=== PATIENT | female | born 1995 ===

== ENCOUNTER → 2020-05-02 | Outpatient (CLI) | payer OTHER | END | disposition home or self-care (01) | LOC: PRENATAL 10:30 | PROVIDERS: ATTEND Obstetrics & Gynecology Maternal & Fetal Medicine | DX: Z36.89 Encounter for other specified antenatal screening (principal); O36.80X1 Pregnancy with inconclusive fetal viability, fetus 1; Z3A.12 12 weeks gestation of pregnancy ==

== ENCOUNTER → 2020-06-28 | Outpatient (CLI) | payer OTHER | END | disposition home or self-care (01) | LOC: PRENATAL 09:15 | PROVIDERS: ATTEND Obstetrics & Gynecology Maternal & Fetal Medicine | DX: O35.0XX1 Maternal care for (suspected) central nervous system malformation in fetus, fetus 1 (principal); O35.3XX1 Maternal care for (suspected) damage to fetus from viral disease in mother, fetus 1; O98.512 Other viral diseases complicating pregnancy, second trimester; Z36.89 Encounter for other specified antenatal screening; Z3A.20 20 weeks gestation of pregnancy ==

== ENCOUNTER → 2020-09-19 | Outpatient (CLI) | payer OTHER | END | disposition home or self-care (01) | LOC: PRENATAL 16:10 | PROVIDERS: ATTEND Obstetrics & Gynecology Maternal & Fetal Medicine | DX: O26.843 Uterine size-date discrepancy, third trimester (principal); O35.0XX1 Maternal care for (suspected) central nervous system malformation in fetus, fetus 1; Z36.89 Encounter for other specified antenatal screening; Z3A.33 33 weeks gestation of pregnancy ==

== ENCOUNTER 2020-10-30 14:46 | Inpatient (IN) | payer OTHER ==
[~2020-10-30] VITALS: Ht 149.9 cm; Wt 78.9 kg
[2020-11-11] MEDS ORDERED: PRENATAL CAPLE1 EAC1 PO (08:48)
== END 2020-11-14 17:12 | disposition home or self-care (01) | DRG 788 ==
LOC: SURH 14:46 → LDR 11-11 06:09 → OB/GYN 11-11 06:09 → LDR 11-11 08:50 → OB/GYN 11-12 01:45
PROVIDERS: ADMIT Student in an Organized Health Care Education/Training Program; ATTEND Student in an Organized Health Care Education/Training Program
PROC: 4A1HXFZ Monitoring of Products of Conception, Cardiac Rhythm, External Approach (ICD-10-PCS; 2020-11-11)
PROC: 3E0P7VZ Introduction of Hormone into Female Reproductive, Via Natural or Artificial Opening (ICD-10-PCS; 2020-11-11)
PROC: 10907ZC Drainage of Amniotic Fluid, Therapeutic from Products of Conception, Via Natural or Artificial Opening (ICD-10-PCS; 2020-11-11)
PROC: 10D00Z1 Extraction of Products of Conception, Low, Open Approach (ICD-10-PCS; principal; 2020-11-11 20:15)
DX: O62.1 Secondary uterine inertia (principal); O24.420 Gestational diabetes mellitus in childbirth, diet controlled; Z86.16 Personal history of COVID-19; Z3A.39 39 weeks gestation of pregnancy; Z37.0 Single live birth

== ENCOUNTER 2021-12-04 19:23 | Emergency (ER) | payer OTHER ==
[~2021-12-04] VITALS: Ht 124.5 cm; Wt 78.0 kg
[~2021-12-04 19:23] MED LIST: PRENATAL CAPLE1 EAC1 PO
== END 2021-12-04 22:10 | disposition home or self-care (01) ==
LOC: ER 19:23
DX: U07.1 COVID-19 (principal); O24.419 Gestational diabetes mellitus in pregnancy, unspecified control; Z3A.39 39 weeks gestation of pregnancy

== ENCOUNTER 2021-12-25 11:36 | Outpatient (CLI) | payer OTHER | END 2021-12-25 15:38 | disposition home or self-care (01) | LOC: PRENATAL 11:36 | PROVIDERS: ATTEND Obstetrics & Gynecology Maternal & Fetal Medicine | DX: O35.0XX0 Maternal care for (suspected) central nervous system malformation in fetus, not applicable or unspecified (principal); O35.3XX0 Maternal care for (suspected) damage to fetus from viral disease in mother, not applicable or unspecified; O99.280 Endocrine, nutritional and metabolic diseases complicating pregnancy, unspecified trimester; O34.219 Maternal care for unspecified type scar from previous cesarean delivery; Z3A.21 21 weeks gestation of pregnancy ==

== ENCOUNTER 2022-01-26 13:47 | Outpatient (CLI) | payer OTHER | END 2022-01-26 13:48 | disposition home or self-care (01) | LOC: LAB 13:47 | PROVIDERS: ATTEND Obstetrics & Gynecology | DX: Z34.82 Encounter for supervision of other normal pregnancy, second trimester (principal); O60.02 Preterm labor without delivery, second trimester ==

== ENCOUNTER 2022-03-12 08:59 | Outpatient (CLI) | payer OTHER | END 2022-03-12 10:30 | disposition home or self-care (01) | LOC: PRENATAL 08:59 | PROVIDERS: ATTEND Obstetrics & Gynecology Maternal & Fetal Medicine | DX: O26.849 Uterine size-date discrepancy, unspecified trimester (principal); O36.8199 Decreased fetal movements, unspecified trimester, other fetus; O99.280 Endocrine, nutritional and metabolic diseases complicating pregnancy, unspecified trimester; O34.219 Maternal care for unspecified type scar from previous cesarean delivery; O24.419 Gestational diabetes mellitus in pregnancy, unspecified control ==

== ENCOUNTER 2022-04-24 11:45 | Inpatient (IN) | payer OTHER ==
[~2022-04-24] VITALS: Ht 149.9 cm; Wt 84.8 kg
[2022-05-02] MEDS ORDERED: PERCOCET 5-3251 EACH PO (14:27)
[2022-05-02] MEDS ORDERED: SURFAK240 M1 PO (14:27)
[2022-05-02] MEDS ORDERED: IBU800 MG PO (14:27)
== END 2022-05-02 15:29 | disposition home or self-care (01) | DRG 785 ==
LOC: O/R 04-29 06:28 → OB/GYN 04-29 06:28
PROVIDERS: ADMIT Student in an Organized Health Care Education/Training Program; ATTEND Student in an Organized Health Care Education/Training Program
PROC: 0UB70ZZ Excision of Bilateral Fallopian Tubes, Open Approach (ICD-10-PCS; 2022-04-29)
PROC: 4A1HXCZ Monitoring of Products of Conception, Cardiac Rate, External Approach (ICD-10-PCS; 2022-04-29)
PROC: 10D00Z1 Extraction of Products of Conception, Low, Open Approach (ICD-10-PCS; principal; 2022-04-29 12:15)
DX: O34.211 Maternal care for low transverse scar from previous cesarean delivery (principal); O24.420 Gestational diabetes mellitus in childbirth, diet controlled; Z30.2 Encounter for sterilization; Z3A.39 39 weeks gestation of pregnancy; Z20.822 Contact with and (suspected) exposure to COVID-19; Z37.0 Single live birth